=== PATIENT | female | born 1980 | race Caucasian/White ===

== ENCOUNTER → 2020-02-29 12:16 | Outpatient (CLI) | payer OTHER, SELFPAY ==
--- NOTE | 2020-02-29 | DI.MRI.S_ITS ---
PROCEDURE: MR CERVICAL SPINE WO CON INDICATIONS: NUMBNESS AND TINGLING IN LEFT HAND,CERVICALGIA TECHNIQUE: Noncontrast sagittal T1 spin echo and T2 fast spin echo, sagittal STIR, foraminal oblique sagittal T2 fast spin echo, and axial gradient echo or T2 fast spin echo through the cervical spine. COMPARISON: None. FINDINGS: Image quality: Excellent. Alignment and Curvature: There is reversal of cervical curvature with apex at C4-5. There is trace retrolisthesis of C3 on C4, C4 on C5, C5 on C6. Bone Marrow: Marrow demonstrates normal overall signal. Mild reactive endplate changes are present at C3-4, C4-5, C5-6. Spinal Cord: Visualized spinal cord has normal size and signal. No cerebellar tonsillar herniation. Paraspinous Soft Tissues: No paravertebral masses. Prevertebral soft tissues are normal in thickness. Discs: Moderate desiccation is present throughout the cervical spine most severe at C5-6. C2-C3: Mild disc bulge without spinal stenosis. Moderate right and [id number] left foraminal narrowing with uncovertebral hypertrophy. C3-C4: Mild disc bulge with moderate spinal stenosis. Severe left and moderate right foraminal narrowing with uncovertebral hypertrophy. C4-C5: Mild disc bulge with moderate to severe spinal stenosis. Severe left and moderate right foraminal narrowing with uncovertebral hypertrophy. C5-C6: Mild disc bulge with severe spinal stenosis and canal compression. Severe left and moderate right foraminal narrowing with uncovertebral hypertrophy. C6-C7: Mild disc bulge with moderate spinal stenosis. Moderate bilateral foraminal narrowing with uncovertebral hypertrophy. C7-T1: Mild disc bulge with superimposed posterior central protrusion. No foraminal narrowing. IMPRESSION: 1. Multilevel moderate to severe spinal stenosis most prominent C4-5 and C5-6 secondary to disc bulge with contributing effect of retrolisthesis. 2. Multilevel foraminal narrowing severe at C3-4, C4-5, C5-6 secondary to uncovertebral arthropathy. Dictated by: Gini Forbes M.D. on 02/29/2020 at 14:43 Approved by: Gini Forbes M.D. on 02/29/2020 at 14:46
== END ==
PROVIDERS: Family Provider Physician Assistant; PCP Family Medicine; Referring Provider Family Medicine; Visit Provider Family Medicine
DX: M48.02 Spinal stenosis, cervical region (principal); M47.812 Spondylosis without myelopathy or radiculopathy, cervical region; M50.21 Other cervical disc displacement, high cervical region; G56.02 Carpal tunnel syndrome, left upper limb; R20.0 Anesthesia of skin; R20.2 Paresthesia of skin
CPT/HCPCS: 72141

== ENCOUNTER → 2020-10-17 09:39 | Outpatient (CLI) | payer OTHER, SELFPAY ==
--- NOTE | 2020-10-17 09:43 | DI.RAD.S_ITS ---
PROCEDURE: XR CERVICAL SPINE 4V OR 5V INDICATIONS: Cervical radiculopathy TECHNIQUE: 5 views of the cervical spine acquired. COMPARISON: None. FINDINGS: Bones: Straightening of the normal lordotic curvature. No acute fracture identified. Multilevel degenerative endplate sclerosis and spurring. Diffuse facet arthropathy. Moderate narrowing of the cervical disc spaces, with relative sparing at C2-C3. Levocurvature is noted. On the left, there is diffuse mild to moderate bony foraminal stenoses with sparing at the C2-C3 level. On the right, there is moderate diffuse bony foraminal stenoses throughout the cervical spine with sparing at the C2-C3 and C3-C4 level. Soft tissues: No prevertebral soft tissue swelling. IMPRESSION: Multilevel cervical spondylosis and facet arthropathy. Levocurvature. Straightening of the normal lordotic curvature. Numerous bilateral bony foraminal stenoses as above. Dictated by: Neto Sharpe M.D. on 10/17/2020 at 17:09 Approved by: Neto Sharpe M.D. on 10/17/2020 at 17:11
== END ==
PROVIDERS: Family Provider Physician Assistant; PCP Family Medicine; Referring Provider Physical Medicine & Rehabilitation; Visit Provider Physical Medicine & Rehabilitation
DX: M47.22 Other spondylosis with radiculopathy, cervical region (principal); M48.02 Spinal stenosis, cervical region
CPT/HCPCS: 72050; 99214

== ENCOUNTER → 2020-11-20 19:45 | Outpatient (ROUT) | payer OTHER, SELFPAY ==
[2020-11-20 21:27] LABS: COVID19 - ORCAS (NP or Nasal) Negative (Negative)
== END ==
PROVIDERS: Family Provider Physician Assistant; PCP Family Medicine; Visit Provider Physical Medicine & Rehabilitation
DX: Z20.822 Contact with and (suspected) exposure to COVID-19 (principal)
CPT/HCPCS: U0003

== ENCOUNTER 2020-11-22 09:22 | Outpatient (CLI) | payer OTHER, SELFPAY ==
[2020-11-22] VITALS (10 sets, daily range): BP systolic 109–124; BP diastolic 73–84; PULSE 84–96; RESP 16–24; TEMP 36.9; O2SAT 97–100
--- NOTE | 2020-11-22 09:24 | DI.RAD.S_ITS ---
PROCEDURE: PAIN C/T INTERLAMINAR INJECT INDICATIONS: SPINAL STENOSIS COMPARISON: None. FINDINGS: Fluoroscopic spot filming was performed to verify placement of spinal needles at the C6-C7 level(s), as labeled on the films. Appropriate location(s) of the needle tip(s) was confirmed by injection of iodinated contrast. IMPRESSION: Successful needle tip localization for low cervical trans-laminar epidural injection. Dictated by: Luis Angel Barriga M.D. on 11/22/2020 at 13:15 Approved by: Luis Angel Barriga M.D. on 11/22/2020 at 13:16
[2020-11-22] MEDS: fentaNYL 100 MCG/2 ML INJ 50 MCG IV (10:31)
[2020-11-22] MEDS: MIDAZOLAM 5 MG/5 ML VIAL IV (10:35)
[2020-11-22] MEDS: IOPAMIDOL 15 ML VIAL 3 ML INJ (10:38)
[2020-11-22] MEDS: DEXAMETHASONE 10 MG/ML VIAL 30 MG INJ (10:38)
[2020-11-22] MEDS: BUPIVACAINE 0.25% (PF) VIAL 2 ML INJ (10:38)
--- NOTE | 2020-11-22 10:51 | P.PCN_ITS ---
Date/Time/Diagnoses Date of procedure: 11/22/20 Time of procedure: 10:51 Pre-procedure diagnosis: 1. CERVICAL STENOSIS, 2. CERVICAL HNP WITH UPPER EXTREMITY RADICULAR FEATURES Post-procedure diagnosis: same Procedure Notes Procedure: 1. FLUORSCOPICALLY GUIDED CONTRAST CONTROLLED INTERLAMINAR EPIDURAL STEROID INJECTION - C6/7 TL ANGELINA Indications: Margarita is referred by Dr. Begum for treatment of Cervical HNP with Upper Extremity Paresthesias. Physician: Jose Enrique Gonzales Total Fluoroscopy time (seconds): 17 Total sedation minutes: 22 Complications: none Procedure in detail & Post-procedure care: FINDINGS Cervical Stenosis due to disc deterioration and nerve root irritation and nerve root irritation DESCRIPTION OF PROCEDURE Fluoroscopically guided, contrast-controlled C6/7 translaminar epidural steroid injection with conscious sedation. Following review of allergy and review of potential side effects and complications, including, but not necessarily limited to, infection, allergic reaction, local tissue breakdown, temporary as well as permanent nerve injury, stroke, paralysis, and possible , the patient indicated that patient understood and agreed to proceed. An informed consent document was signed by the patient, witnessed by a nurse, and placed in the patient's chart. Additionally, other treatment options including modalities, medications, and physical therapy were reviewed with the patient. After review of previous anaesthesic history and IV conscious sedation the patient was deemed safe to proceed with today?s procedure with IV conscious sedation as ASA class II designation. Safety time-out was performed to confirm patient ID, procedure to be performed and site of procedure. IV sedation was accomplished with a combination of 3mg of Versed and 50mcg of Fentanyl administered by the RN after DO order, titrated to patient comfort during the course of the procedure while the patient remained responsive to all verbal commands. In the prone position, following sterile prep and drape of the cervical region, the C6/7 translaminar space was identified fluoroscopically. The skin was anesthetized via a 25-gauge 1.5-inch needle with 1% lidocaine solution. At this point, a 25-gauge, 2.5-inch short bevel spinal needle was atraumatically introduced and advanced under fluoroscopic guidance into epidural space at the C6/7 translaminar space. Depth was confirmed on lateral view. Radiological data, including multiple fluoroscopic views of the cervical spine, reveal a spinal needle at the C6/7 translaminar space. Lateral views then show placement of the needle in the epidural space. Subsequent views show contrast material flowing superiorly and inferiorly in the epidural space. DSA fluoroscopy with live contrast injection, once again, confirmed no vascular or intrathecal uptake. At this point, using loss of resistance technique with saline and air, the epidural space was entered. Following negative aspiration, injection of omar roximately 1.5 cc of Isovue-200 with live fluoroscopy in the AP view confirmed epidural flow in the epidural space without vascular or intrathecal uptake observed. Subsequently, a test dose of 1 cc of 1% lidocaine solution was injected and patient was observed for two minutes without signs or symptoms of complications, including abdominal pain, shortness of breath, bilateral upper or lower extremity weakness, nausea and vomiting, prior to steroid injection. At this point, 3cc or 30mg of dexamethasone was then injected without incident. The patient tolerated the procedure well without signs or symptoms of complications prior to being transferred to the recovery area for further monitoring, The patient was then transferred to the recovery area where they were observed for an appropriate period of time after the injection. The patient reported a VAS score of 6 prior to the procedure and a post-procedure VAS of 0. POST OP INSTRUCTIONS The patient was provided a Pain Log to continue to record their response to the target-specific procedure prior to follow-up visit with the referring provider. Additionally, specific post-injection care instructions and a contact number to our office were provided if concerns arise regarding possible complications associated with the procedure are suspected.
== END 2020-11-22 11:16 | disposition home or self-care (01) ==
PROVIDERS: Family Provider Physician Assistant; PCP Family Medicine; Referring Provider Physical Medicine & Rehabilitation; Visit Provider Physical Medicine & Rehabilitation
DX: M48.02 Spinal stenosis, cervical region (principal); M50.123 Cervical disc disorder at C6-C7 level with radiculopathy
CPT/HCPCS: 62321; 99152; J1100; J2250; J3010

== ENCOUNTER → 2021-03-18 08:13 | Outpatient (CLI) | payer OTHER, SELFPAY ==
[2021-03-19 21:52] LABS: COVID19 - ORCAS (NP or Nasal) Negative (Negative)
== END ==
PROVIDERS: Family Provider Physician Assistant; PCP Family Medicine; Referring Provider Family Medicine; Visit Provider Family Medicine
DX: Z20.822 Contact with and (suspected) exposure to COVID-19 (principal)
CPT/HCPCS: U0003

== ENCOUNTER 2021-03-19 09:22 | Outpatient (CLI) | payer OTHER, SELFPAY ==
[2021-03-19] VITALS (9 sets, daily range): BP systolic 120–134; BP diastolic 77–97; PULSE 77–93; RESP 10–20; TEMP 37.1; O2SAT 97–100
--- NOTE | 2021-03-19 09:25 | DI.RAD.S_ITS ---
PROCEDURE: PAIN C/T FACET INJ/BLK 1ST L INDICATIONS: SPINAL STENOSIS COMPARISON: [facility], , PAIN C/T INTERLAMINAR INJECT, 11/22/2020, 10:39. FINDINGS: Fluoroscopic spot filming was performed to verify placement of spinal needles on the right side at the C4-C5, C5-C6, and C6-C7 levels, as labeled on the films. Appropriate location(s) of the needle tip(s) was confirmed by injection of iodinated contrast. IMPRESSION: Intraprocedural examination within normal limits. Dictated by: Kevin Mtz M.D. on 03/19/2021 at 11:12 Approved by: Kevin Mtz M.D. on 03/19/2021 at 11:12
[2021-03-19 10:27] LABS: COVID19 -Nasal RAPID Negative (Negative)
[2021-03-19] MEDS: fentaNYL 100 MCG/2 ML INJ 50 MCG IV (10:50)
[2021-03-19] MEDS: IOPAMIDOL 15 ML VIAL 3 ML INJ (10:51)
[2021-03-19] MEDS: BUPIVACAINE 0.5% (PF) VIAL 2 ML INJ (10:51)
[2021-03-19] MEDS: MIDAZOLAM 5 MG/5 ML VIAL IV (10:52)
[2021-03-19] MEDS: DEXAMETHASONE 10 MG/ML VIAL 30 MG INJ (10:52)
--- NOTE | 2021-03-19 11:05 | P.PCN_ITS ---
Date/Time/Diagnoses Date of procedure: 03/19/21 Time of procedure: 11:05 Pre-procedure diagnosis: 1. FACET ARTHROPATHY 2. AXIAL NECK PAIN Post-procedure diagnosis: same Procedure Notes Procedure: 1. FLUOROSCOPICALLY GUIDED, CONTRAST-CONTROLLED RIGHT C4/5, C5/6 AND C6/7 FACET JOINT INJECTIONS WITH CONSCIOUS SEDATION. Indications: Margarita is referred by Dr. Begum for treatment of Axial Neck Pain Physician: Jose Enrique Gonzales Total Fluoroscopy time (seconds): 12 Total sedation minutes: 12 Complications: none Procedure in detail & Post-procedure care: DESCRIPTION OF PROCEDURE Fluoroscopically guided, contrast-controlled right C4/5, C5/6 and C6/7 facet joint injections with conscious sedation. Following review of allergy and review of potential side effects and complications, including, but not necessarily limited to, infection, allergic reaction, local tissue breakdown, stroke, temporary or permanent nerve injury and paralysis, the patient indicated that the patient understood and agreed to proceed. An informed consent document was signed by the patient, witnessed by a nurse, and placed in the patient's chart. Additionally, other treatment options including medications, modalities, and physical therapy were reviewed with the patient. After review of previous anaesthesic history and IV conscious sedation the patient was deemed safe to proceed with today?s procedure with IV conscious s edation as ASA class II designation. Safety time-out was performed to confirm patient ID, procedure to be performed and site of procedure. IV sedation was accomplished with a combination of 3mg of Versed and 50mcg of Fentanyl was administered by the RN after DO order, titrated to patient comfort during the course of the procedure while the patient remained responsive to all verbal commands In the prone position, following sterile prep and drape of the cervical spine region, the posterior aspect of the right C4/5, C5/6 and C6/7 facet joints were identified fluoroscopically. The skin was anesthetized via a 25-gauge 1.5-inch needle with 1% lidocaine solution into the corresponding facet joints. At this point, a 25-gauge 2.5-inch spinal needle was atraumatically introduced and advanced under fluoroscopic guidance into the corresponding facet joints. Following negative aspiration, injections of approximately 0.2-cc of Isovue 200 confirmed interarticular placement without vascular uptake. At this point, a total of 1 cc including 0.5 cc or 5 mg of dexamethasone combined with 0.5 cc of 1% lidocaine solution was injected without complication into each of the corresponding facet joints. The procedure tolerated the procedure well without signs or symptoms of complications prior to transfer to the recovery area continued monitoring without incident. The patient was then transferred to the recovery area where they were observed for an appropriate period of time after the injection. The patient reported a VAS score of 7 prior to the procedure and a post- procedure VAS of 0. POST OP INSTRUCTIONS They were provided a Pain Log to continue to record their response to the target-specific procedure prior to their follow-up visit with their referring physician. Additionally, specific post-injection care instructions and a contact number to our office were provided if concerns arise regarding possible complications associated with the procedure are suspected.
== END 2021-03-19 11:27 | disposition home or self-care (01) ==
PROVIDERS: Family Provider Physician Assistant; PCP Family Medicine; Referring Provider Physical Medicine & Rehabilitation; Visit Provider Physical Medicine & Rehabilitation
DX: M47.812 Spondylosis without myelopathy or radiculopathy, cervical region (principal); M54.2 Cervicalgia; Z20.822 Contact with and (suspected) exposure to COVID-19
CPT/HCPCS: 64490; 64491; 64492; 87635; 99152; J1100; J2250; J3010